=== PATIENT | female | born 1935 | race African-American/Black ===

== ENCOUNTER 2016-11-04 19:14 | Emergency (ER) | payer MEDICARE ==
[~2016-11-04 19:14] MED LIST: FLEXERIL10 M1 PO; LORTAB 5/500 TA1 TA1 PO
== END 2016-11-04 19:47 | disposition left against medical advice (07) ==
LOC: CED 19:14
DX: Z53.21 Procedure and treatment not carried out due to patient leaving prior to being seen by health care provider (principal)

== ENCOUNTER → 2017-04-02 | Outpatient (CLI) | payer OTHER ==
--- NOTE | ~2017-04-02 | CR63 ---
[facility] A Service of [facility] & [facility] RADIOLOGY TEXT RESULTS PATIENT: ROBERTH GARCIA LOCATION: [facility] [facility] : 37 UNIT #: [id number] AGE: [address]: TYRONE MILLARD MD SEX: F ORDER DR: [id number] [facility] [address] [place], [place] [address] [id number] O MR#: [id number] Acc #: [id number] NAME: ROBERTH GARCIA : 1935 SEX: F STUDY DATE/TIME: 04/02/2017 9:12 UNIT: [facility] ROOM: STUDY DESCRIPTION: CR Chest 2 View Attending Physician: Tyrone Millard M.D. Referring Physician: Tyrone Millard M.D. Ordering Physician: Tyrone Millard M.D. Primary Care Physician: Tyrone Millard M.D. MEDICAL IMAGING REPORT This report is preliminary unless electronic signature is present EXAM Chest, two views, dated 04/02/2017. COMPARISON None. HISTORY Cough and congestion for a month. FINDINGS Two views of the chest were obtained. PA and lateral examination of the chest upright shows a good expansion of the parenchyma with a normal distribution of the pulmonary vascularity. There is no indication of congestion, effusion, infiltrate, tumor, or nodular density. The pleural reflections and diaphragmatic contours are normal. The cardiac silhouette and mediastinal anatomy is within normal limits. IMPRESSION Normal two views of the chest. Dictated by... Jaswant Sen M.D. THIS IS AN ELECTRONICALLY VERIFIED REPORT Jaswant Sen M.D. at 04/03/2017 3:01 PM CPR/jt TD: 04/02/2017 19:42 JOB #: [id number] MEDICAL IMAGING REPORT Page 1 of 1 COPY
== END | disposition home or self-care (01) ==
LOC: CRAD 09:00
DX: R05 Cough (principal)
CPT/HCPCS: 71020

== ENCOUNTER → 2017-04-06 | Outpatient (CLI) | payer OTHER ==
--- NOTE | ~2017-04-06 | US5 ---
[facility] A Service of [facility] RADIOLOGY TEXT RESULTS PATIENT: ROBERTH GARCIA LOCATION: [facility] : 37 UNIT #: [id number] AGE: [address]: TYRONE MILLARD MD SEX: F ORDER DR: [id number] [facility] [place], [place] [address] [id number] O MR#: [id number] Acc #: [id number] NAME: ROBERTH GARCIA : 1935 SEX: F STUDY DATE/TIME: 04/06/2017 8:27 UNIT: [facility] ROOM: STUDY DESCRIPTION: US Abdominal Complete Attending Physician: Tyrone Millard M.D. Referring Physician: Tyrone Millard M.D. Ordering Physician: Tyrone Millard M.D. Primary Care Physician: Tyrone Millard M.D. MEDICAL IMAGING REPORT This report is preliminary unless electronic signature is present EXAM Abdominal sound complete, 04/06/2017. INDICATION 81-year-old female with abdominal pain, left upper quadrant pain for 3 months. Epigastric pain. Medication controlled diabetes. Status post cholecystectomy. TECHNIQUE Sonographic imaging of the abdomen was performed. COMPARISON Correlation is made with prior hepatic ultrasound 03/28/2016. FINDINGS The pancreas is unremarkable to the extent visualized. Liver measures 14.7 cm long axis and demonstrates probable mild fatty infiltration. Liver otherwise unremarkable. Gallbladder surgically absent. Extrahepatic common bile duct measures 3-4 mm. The kidneys are nonobstructed. The right measures 9.3 cm long axis and the left 8.5 cm. Incidental cyst in the right kidney measures 1.5 cm. Visualized aorta and IVC within normal limits. Spleen suboptimally visualized but measures about 8.1 cm long axis. IMPRESSION 1. Surgical absence of the gallbladder. 2. Mild fatty infiltration of the liver. 3. Incidental right renal cyst unchanged. Dictated by... [facility] A Service of [facility] RADIOLOGY TEXT RESULTS PATIENT: ROBERTH GARCIA LOCATION: [facility] : 37 UNIT #: [id number] AGE: [address]: TYRONE MILLARD MD SEX: F ORDER DR: Urbano Edouard M.D. THIS IS AN ELECTRONICALLY VERIFIED REPORT Urbano Edouard M.D. at 04/07/2017 7:18 AM GLORIA/venice TD: 04/06/2017 16:02 JOB #: [id number] MEDICAL IMAGING REPORT Page 1 of 1 COPY
== END | disposition home or self-care (01) ==
LOC: CWCC 07:57
DX: R10.13 Epigastric pain (principal); K76.0 Fatty (change of) liver, not elsewhere classified; Z90.49 Acquired absence of other specified parts of digestive tract
CPT/HCPCS: 76700

== ENCOUNTER → 2017-04-14 | Outpatient (CLI) | payer OTHER | END | disposition home or self-care (01) | LOC: CRAD 07:45 | DX: R13.10 Dysphagia, unspecified (principal) | CPT/HCPCS: 74230; 92611; G8996-GN; G8997-GN; G8998-GN ==